=== PATIENT | female | born 1985 ===

== ENCOUNTER 2023-04-18 13:46 | Outpatient (CLI) | payer OTHER ==
--- NOTE | 2023-04-18 14:33 | SLEEP CARE CONSULTATION ---
Information from patient questionnaire entered by Petty Robles. I have reviewed and concur with the information entered by Petty Robles. This document represents the service I personally performed and the decisions made by me, Octavia Hunt ARNP. History of Present Illness Service Date and Time: 04/18/2023 1346 Reason for Visit: New patient Chief Complaint: reports: Unrefreshed sleep, Excessive daytime sleepiness, Fatigue, Frequent awakenings at night Date of Onset: on & off about 15 years Usual bedtime: 9-10 PM Time it takes to fall asleep: about an hour Snores at night: Yes (not sure) Observed to quit breathing while asleep: No Sleeps alone due to snoring: No Number of times waking at night: 3+ Reasons for waking at night: reports: Choking, Pain, Bathroom, Other (noise; nightmares). denies: Snoring, Gasping for air Toss, Turn, or Twitch while sleeping: Yes Recalls having dreams: Yes Usually gets out of bed at: 6-7 AM Feels refreshed in the morning: No Morning headache: No Sleepy or fatigued during the day: Yes Ever fallen asleep while driving: No (Drowsy driving; no accidents) Takes day naps: No Dreams during day naps: Yes (sometimes/not always) Prior sleep studies: No Additional HPI information: I had the pleasure of seeing JACQUE LUBIN today regarding the possibility of her having a sleep disorder. Her current complaints are excessive daytime sleepiness, fatigue, frequent night awakenings and unrefreshed sleep. She states she is waking up startled awake with "life and " nightmares more lately. She used to have dreams like this when younger but they got fewer until recently. She states she is tired all the time. She has been told both ways about snoring, some yes and some no. She states her spouse currently has told her that she snores. She feels like she wakes up frequently, three to five times a night. She wake up with back pain and has to turn in bed. She has been a light sleeper and noise will wake her up too. - Parasomnia Symptoms Ever been unable to move upon waking from sleep: Yes (mostly when in 20s; last time a yr ago) Walks in sleep: No Talks in sleep: Yes (mumbles) Ever acted out dreams in sleep: Yes (just movements) Ever felt weak in the knees when startled or emotional: No Bothered by creepy, crawly, restless sensations in legs: No Problems with memory or concentration: Yes (both, memory has never been good; concentration is hard to do) Subjective Initial [place] Sleepiness Scale score: 15 (04/18/2023) Past Medical History Past Medical History: reports: Claustrophobia, Arthritis, Anxiety, Depression, Mood disorder (PTSD, OCD), Other (slight scoliosis, Degenerative disc disease) Social History The patient's occupation is a AT. Patient is and lives in . Have you smoked in the past 12 months: Yes Cigarettes per day (20/pack): 3 (1 pack per week) Years of smokin Quit date: 24 Mar 2023 Smoking Pack Years: 2.1 Alcohol use: No Alcohol amount and frequency: just stopped in last several weeks Caffeine use: No Family History Family history of sleep disordered breathing: No Allergies and Home Medications Known drug allergies: No Drug allergies reviewed: Yes Home medication list reviewed: Yes Allergy and home medication list: Medications: recently weaned off Mirtazepine Ibuprofen, as needed for back pain Review of Systems Weight gain over past 5 years: 20 Cardiovascular: reports: palpitations, chest pain, leg or foot swelling. denies: high blood pressure Respiratory: reports: shortness of breath Neurological: denies: headaches Psychiatric: reports: anxiety, depression Ear/Nose/Throat: reports: wisdom teeth removed. denies: tonsillectomy Endocrine: reports: sluggishness Musculoskeletal: reports: joint pain, neck pain, back pain Immunologic: denies: allergies to food or environment Physical Exam Vital signs obtained and entered by: Octavia Tesfaye NP Blood Pressure: 96/64 Cuff size: wrist (left) Heart Rate: 85 O2 Saturation: 96 Height: 5 ft Weight: 156 lb 3.2 oz Body Mass Index: 30.4 BMI Classification: Obese Neck circumference: 13.5 Mouth and throat: narrow oropharynx Soft palate: normal Hard palate: normal Uvula: normal Uvula visualization: 25% Mallampati Class III Tongue: enlarged in size with teeth hernandez on lateral edges Tonsils: 1+ Neck: normal w/o lymphadenopathy or thyromegaly Heart: regular rate and rhythm Lungs: clear bilaterally Impression and Plan 1. Suspected Obstructive Sleep Apnea-Hypopnea Syndrome, as suggested by a history of loud and irregular snoring, gasping or choking in sleep, frequent awakening during the night, unrefreshed sleep, cognitive impairment, and excessive daytime sleepiness. Narrow oropharynx and obesity are common predisposing factors for obstructive sleep apnea-hypopnea syndrome. I recommend proceeding to polysomnography to confirm the diagnosis and to assess severity. If the patient has significant sleep disordered breathing, a manual CPAP titration study will also be performed to find the optimal treatment pressure. I informed the patient of what the sleep studies involve and after some discussion, obtained agreement to proceed. The pathophysiology of obstructive sleep apnea-hypopnea syndrome was discussed with the patient and health risks of cardiovascular and cerebrovascular disease if not treated. Risks of drowsy driving discussed in detail and patient advised to avoid long distance driving and to tack puller at the first sign of drowsiness. Patient agreed to plan. * Schedule polysomnography +- manual CPAP titration study and return in 1-2 weeks after the study to discuss result and initiate therapy. * Avoid long distance driving or driving when feeling sleepy. * Avoid alcohol, sedative and muscle relaxant around bedtime. * Attempt to lose weight. * Review instructions provided by trained office staff on how to prepare for the sleep study. * Return for follow-up after sleep study completed. Counseling Topics: Weight loss health impact Visit Type: In Office Time Spent with Patient (minutes): 32 Provider Statement: I spent 100% of the Face to Face Visit with the patient with greater than 50% spent counseling the patient and coordination of care.
[2023-04-18 14:37] VITALS: BP 96/64
== END 2023-04-18 13:47 | disposition home or self-care (01) ==
LOC: SC 13:46
PROVIDERS: ATTEND Nurse Practitioner Family
DX: R06.83 Snoring (principal); G47.10 Hypersomnia, unspecified; R53.83 Other fatigue; G47.8 Other sleep disorders; Z87.891 Personal history of nicotine dependence; E66.9 Obesity, unspecified; Z68.30 Body mass index [BMI] 30.0-30.9, adult
CPT/HCPCS: 99203; 99212

== ENCOUNTER 2023-06-07 11:31 | Outpatient (CLI) | payer OTHER ==
--- NOTE | 2023-06-07 12:06 | SLEEP CARE CONSULTATION ---
Information from patient questionnaire entered by Petty Robles. I have reviewed and concur with the information entered by Petty Robles. This document represents the service I personally performed and the decisions made by , Octavia Hunt ARNP. History of Present Illness Service Date and Time: 06/07/2023 1131 Initial [place] Sleepiness Scale score: 15 (04/18/2023) Current [place] Sleepiness Scale score: 18 (06/07/23) Additional HPI information: JACQUE LUBIN returns for follow up and results of the recently performed polysomnography. The patient was informed of the following findings: No significant sleep disordered breathing with an average AHI of 0.4 and mercy oxygen saturation of 94%. I explained the pathophysiology behind obstructive sleep apnea. Patient does not have sleep apnea and was advised how weight gain could increase the risk of developing sleep apnea in the future. I strongly encouraged the patient to lose weight. Patient was cautioned about risks of drowsy driving until sleepiness symptoms resolve. Sleep Study - Results Type of Sleep Study: Polysomnography (COMPLETED 05/23/23) Prior sleep studies: No Polysomnography/Home Sleep Study results: IMPRESSION: The quality of the study is good. The patient had normal sleep efficiency. The sleep architecture was relatively normal as well considering the first night effect. Respiratory monitoring showed no significant sleep disordered breathing (AHI = 0.4) associated with frequent arousals, oxyhemoglobin desaturation and no evidence of hypoxia (mercy oxygen saturation of 94%). The patient slept adequately in supine position (supine AHI = 0.6; nonsupine = 0.00). No audible snore. There was no significant periodic leg movement of sleep. Cardiac rhythm was normal sinus rhythm without significant arrhythmia. No abnormal behavior (parasomnia) observed during the night. Allergies and Home Medications Known drug allergies: No Drug allergies reviewed: Yes Home medication list reviewed: Yes (no changes) Review of Systems Review of systems same as previous: Yes (no changes) Physical Exam Vital signs obtained and entered by: PETTY Lilly MA Blood Pressure: 110/64 (left arm) Cuff size: regular Heart Rate: 67 O2 Saturation: 98 Height: 5 ft Weight: 156 lb 3.2 oz Body Mass Index: 30.4 BMI Classification: Obese Impression and Plan 1. Fatigue, unspecified. Patient's sleep study showed no significant sleep disordered breathing. Patient states she rarely gets more than 4 to 5 hours of sleep at night. She gets an insufficient amount of sleep. Most people require 7- 9 hours of sleep for optimal mental and physical function. Less than 5-6 hours of sleep consistently can contribute to health risks and mortality. Thus patient is advised to strive for a minimum of 7 hours of sleep. She has also had an increase in nightmares recently. She does have a history of anxiety, depression and PTSD as well as OCD. She could not answer if these are well controlled. She is not on any specific treatment for these issues. Increases in stress can also promote poor sleep. I encouraged her to followup with her PCM to seek evaluation and possible treatment for these conditions and she voiced understanding and agreement. 2. Obesity, unspecified. Currently patients BMI is 30.4. Obesity increases the risk of apnea, CPAP pressure requirements and overall health risks especially cardiovascular and diabetes. Thus patient is advised to lose weight. * Follow up with PCP for further evaluation and treatment for her fatigue * Attempt to lose weight * The patient is cautioned about driving until sleepiness is completely resolved. * Return as needed for follow up. Counseling Topics: Weight loss health impact Visit Type: In Office Time Spent with Patient (minutes): 21 Provider Statement: I spent 100% of the Face to Face Visit with the patient with greater than 50% spent counseling the patient and coordination of care.
[2023-06-07 12:12] VITALS: BP 110/64
== END 2023-06-07 11:32 | disposition home or self-care (01) ==
LOC: SC 11:31
PROVIDERS: ATTEND Nurse Practitioner Family
DX: R53.83 Other fatigue (principal); E66.9 Obesity, unspecified; Z68.30 Body mass index [BMI] 30.0-30.9, adult; Z86.59 Personal history of other mental and behavioral disorders
CPT/HCPCS: 99212; 99213